=== PATIENT | female | born 1965 | race Caucasian/White ===

== ENCOUNTER 2018-07-09 09:54 | Emergency (ER) | payer MEDICAID, OTHER ==
[~2018-07-09] VITALS: Ht 167.6 cm; Wt 62.0 kg
--- NOTE | 2018-07-09 10:19 | NUR ---
PT TO ED FOR DULL, INTERMITTENT, SUBSTERNAL, NON RADIATITING CP DESCRIBED PRESSURE OR TIGHNESS FOR 7 MONTHS. PT STATES EPISODES LAST 1-2 DAYS, WITH 4-5 DAYS IN BETWEEN EPISODES. CONNECTED TO MONITOR. VSS. EDMD PRESENT FOR ASSESSMENT. AWAITING FURTHER ORDERS.
--- NOTE | 2018-07-09 10:48 | NUR ---
PT RESTING IN ROOM. VSS. NO NEEDS EXPRESSED. AWAITING LAB DRAW AT THIS TIME. CALL LIGHT WITHIN REACH.
--- NOTE | 2018-07-09 11:33 | NUR ---
PT RESTING IN ROOM. VSS. AWAITING LAB RESULTS. NO NEEDS EXPRESSED. CALL LIGHT WITHIN REACH.
[2018-07-09 11:48] LABS: BASOPHILS # (AUTO) 0.06 x10^3/uL (0-0.1); BASOPHILS % (AUTO) 1 % (0-1); EOSINOPHILS # (AUTO) 0.16 x10^3/uL (0-0.4); EOSINOPHILS % (AUTO) 3 % (1-7); LYMPHOCYTES # (AUTO) 2.58 x10^3/uL (1-3.4); LYMPHOCYTES % (AUTO) 40 % (22-44); MD NO; MEAN CORPUSCULAR HEMOGLOBIN 31.4 pg (27.0-34.8); MEAN CORPUSCULAR HGB CONC 33.9 g/dL (32.4-35.8); MEAN CORPUSCULAR VOLUME 92.5 fL (80-100); MEAN PLATELET VOLUME 7.1 fL (7.4-10.4); MONOCYTES # (AUTO) 0.53 x10^3/uL (0.2-0.8); MONOCYTES % (AUTO) 8 % (2-9); NEUTROPHILS % (AUTO) 48 % (42-75); PLATELET COUNT 371 x10^3/uL (130-400); RED BLOOD COUNT 4.68 x10^6/uL (3.82-5.3); RED CELL DISTRIBUTION WIDTH 13.1 % (9.6-15.2)
[2018-07-09 11:58] LABS: ALANINE AMINOTRANSFERASE 26 U/L (12-78); ALBUMIN 3.8 g/dL (3.4-5.0); ANION GAP 8 mmol/L (5-15); CALCIUM 8.9 mg/dL (8.5-10.1); CHLORIDE 104 mmol/L (98-107); CREATININE 0.73 mg/dL (0.55-1.02)
[2018-07-09 12:02] LABS: ALKALINE PHOSPHATASE 82 U/L (45-117); BILIRUBIN,TOTAL 0.7 mg/dL (0.2-1.0); FREE T4 (FREE THYROXINE) 0.97 ng/dL (0.76-1.46); TOTAL PROTEIN 7.2 g/dL (6.4-8.2); TROPONIN I < 0.015 ng/mL (0.000-0.045)
[2018-07-09 12:35] VITALS: BP 97/42
--- NOTE | 2018-07-09 12:35 | NUR ---
PT RESTING IN ROOM. VSS. NO NEEDS EXPRESSED. CALL LIGHT WTIHIN REACH. ALL RESUTLS BACK A THIS TIME. CHART UP FOR RECHECK.
== END 2018-07-09 13:03 | disposition home or self-care (01) ==
LOC: ED 11:56
DX: R00.2 Palpitations (principal); Z88.1 Allergy status to other antibiotic agents
CPT/HCPCS: 36415; 71046; 80053; 84439; 84443; 84484; 85025; 93005; 99284

== ENCOUNTER 2020-11-10 11:50 | Emergency (ER) | payer BC, MEDICAID ==
[~2020-11-10] VITALS: Ht 167.6 cm; Wt 65.4 kg
--- NOTE | 2020-11-10 12:35 | NUR ---
NO ANSWER WHEN NAMED CALLED IN LOBBY X 1
--- NOTE | 2020-11-10 15:10 | NUR ---
automatic presser: Pt ambulatory to room from lobby at this time.
--- NOTE | 2020-11-10 15:25 | NUR ---
THIS IS A 55 YEAR OLD FEMALE WHO C/O OF HEADACHE X 5 DAYS. PT UP TO BATHROOM, OBTAINED URINE SAMPLE.
--- NOTE | 2020-11-10 15:35 | NUR ---
PAIN IS 6/10 AT THIS TIME
[2020-11-10] MEDS ORDERED: DIPHENHYDRAMINE 50 MG/ML, 1ML ONE (15:42)
[2020-11-10] MEDS ORDERED: PROCHLORPERAZINE 5 MG/ML, 2ML ONE (15:42)
[2020-11-10] MEDS ORDERED: KETOROLAC 30 MG/1 ML ONE (15:42)
--- NOTE | 2020-11-10 15:56 | NUR ---
MEDICATED PER MAR, PT RESTING AT THIS TIME.
[2020-11-10] MEDS ORDERED: PROCHLORPERAZINE 5 MG/ML, 2ML IVPush ONE (16:00)
[2020-11-10] MEDS ORDERED: DIPHENHYDRAMINE 50 MG/ML, 1ML IVPush ONE (16:00)
[2020-11-10] MEDS ORDERED: KETOROLAC 30 MG/1 ML IVPush ONE (16:00)
[2020-11-10 17:07] VITALS: BP 122/63
--- NOTE | 2020-11-10 17:07 | NUR ---
Patient/Caregiver given discharge instructions and they have confirmed that they understand the instructions. Patient ambulatory with steady gait. NAD, all questions answered appropriately, denies additional needs at this time. No personal belongings left in room after discharge. PT STATES PAIN IS 3/10
== END 2020-11-10 17:09 | disposition home or self-care (01) ==
LOC: ED 16:00
DX: G44.219 Episodic tension-type headache, not intractable (principal); F17.200 Nicotine dependence, unspecified, uncomplicated
CPT/HCPCS: 96374; 96375; 99284; J0780; J1200; J1885